=== PATIENT | female | born 1995 | race Hispanic/Latino ===

== ENCOUNTER 2020-10-03 21:08 | Emergency (ER) | payer MEDICAID, OTHER ==
[~2020-10-03] VITALS: Ht 167.6 cm; Wt 70.8 kg
[2020-10-03 21:55] LABS: APPEARANCE,URINE Clear (CLEAR); BILIRUBIN,URINE Negative (NEGATIVE); COLOR,URINE Yellow (YELLOW); GLUCOSE, URINE (UA) Negative (NEGATIVE); KETONES,URINE Negative (NEGATIVE); LEUKOCYTE ESTERASE ,URINE Negative (NEGATIVE); NITRATE,URINE Negative (NEGATIVE); OCCULT BLOOD,URINE Negative (NEGATIVE); PH,URINE 5.5 (5.0-8.0); PROTEIN,URINE Negative (NEGATIVE); UROBILINOGEN,URINE 0.2 mg/dL (0.2-1.0)
[2020-10-03 21:57] LABS: HCG,QUAL RESULT NEGATIVE (NEGATIVE)
[2020-10-03] MEDS ORDERED: FAMOTIDINE 20MG VIAL IV ONE (22:00)
[2020-10-03] MEDS ORDERED: MAG/ALUM/SIMETH 30 ML UDCUP PO ONE (22:00)
[2020-10-03] MEDS ORDERED: LIDOCAINE HCL 2% VISCOUS 15 ML UDCUP PO ONE (22:00)
[2020-10-03 22:01] LABS: BASOPHILS % (AUTO) 0.3 % (0.0-5.0); HEMATOCRIT 42.5 % (36-48); LYMPHOCYTES % (AUTO) 18.5 % (21.0-51.0); MEAN CORPUSCULAR HEMOGLOBIN 31.3 pg (27.0-33.0); MEAN CORPUSCULAR HGB CONC 33.2 g/dL (32.0-36.0); MEAN CORPUSCULAR VOLUME 94.2 fL (79-99); MONOCYTES % (AUTO) 6.1 % (3.0-13.0); NEUTROPHILS % (AUTO) 73.6 % (40.0-77.0); PLATELET COUNT (AUTO) 279 K/uL (130-400); RED BLOOD CELL COUNT(AUTO) 4.51 MIL/uL (4.00-5.50); RED CELL DISTRIBUTION WIDTH 12.5 % (11.0-15.5); WHITE BLOOD COUNT (AUTO) 12.5 K/uL (4.8-10.8)
[2020-10-03 22:12] LABS: CREATININE 0.7 mg/dL (0.5-1.5)
[2020-10-03 22:18] LABS: ALBUMIN 4.2 g/dL (3.5-5.0); BILIRUBIN,TOTAL 0.1 mg/dL (0.2-1.0); TOTAL PROTEIN, SERUM 7.8 g/dL (6.0-8.3)
[2020-10-03 22:55] VITALS: BP 121/83
[2020-10-03] MEDS ORDERED: ONDA4TAB10 PO (23:17)
[2020-10-03] MEDS ORDERED: FAMO-136 PO (23:17)
[2020-10-03] MEDS ORDERED: DICY20TA2 PO (23:17)
== END 2020-10-03 23:32 | disposition home or self-care (01) ==
LOC: EDH 21:08
DX: K29.70 Gastritis, unspecified, without bleeding (principal); Z79.899 Other long term (current) drug therapy
CPT/HCPCS: 36415; 76705; 80053; 81003; 81025; 83690; 85025; 87507; 96374; 99284; S0028; J3490